=== PATIENT | female | born 1980 | race Native Hawaiian/Other Pacific Islander ===

== ENCOUNTER 2017-02-17 11:35 | Inpatient (IN) | payer BC ==
[2017-02-17] MEDS ORDERED: ceFAZolin 1 GM in Sodium Chloride 0.9% 100 ML IVPB ONE (12:46)
[2017-02-17 12:47] VITALS: BMI 28.0
[2017-02-17] MEDS: Lactated Ringer's 1,000 ML IV SCH ×2 (13:00→14:04)
[2017-02-17] MEDS ORDERED: ceFAZolin IV 2 gm in Dextrose 2 GM/50 ML BAG IVPB ONE (13:36)
[2017-02-17] MEDS ORDERED: Oxytocin 30 UNITS in Sodium Chloride 0.9% 500 ML IV ONE (13:37)
[2017-02-17 14:03] LABS: BASO % 0.2 % (0.0-2.0); EOS % 0.3 % (0.0-4.0); HEMATOCRIT 31.6 % (34.0-47.0); LYMPH % 19.9 % (20.0-40.0); MEAN CELL VOLUME 102.8 fl (81.0-99.0); MEAN CORPUSCULAR HEMOGLOBIN 34.4 pg (27.0-31.0); MEAN CORPUSCULAR HGB CONC 33.5 g/dL (33.0-37.0); MEAN PLATELET VOLUME 9.8 fl (7.2-11.7); MONO # 0.6 K/uL (0.0-0.8); MONO % 11.7 % (0.0-10.0); NEUT # 3.3 K/uL (1.8-7.0); NEUT % 67.9 % (50.0-75.0); NRBC % 0.1 % (0.0-0.0); RED CELL DISTRIBUTION WIDTH 14.3 % (11.5-14.5); WHITE BLOOD COUNT 4.9 K/uL (4.8-10.8)
--- NOTE | 2017-02-17 14:38 | OBHP ---
Datetime: 02/17/2017 12:58 IP Adm Impression: , intrauterine ; No Active Labor IP Admit Plan: Admit to unit; Initiate Section protocol Admit Comment, IP Provider: 36 y/o female at 36.3wks with no significant medical history presen ting today for a scheduled . Pt does not have any complaints at this time, denies any vagina l bleeding, LOF, ctx. admits to +FM. No other complaints otherwise. PMHX: denies PSHX: denies Allergies: denies OB history: 1st , no complications Labs: Hepatitis negative, rubella immune, GBS negative PE Gen: Pleasant, NAD Heart: RRR, S1S2, no murmurs Resp: CTA B/L Abdomen: Gravid uterus, BS+, nontender, nondistended, no guarding Extremities: No cyanosis, edema A/P: 36 y/o at 36.3wk twin gestation for scheduled Admit to Labor and delivery NPO Initiate protocol Manage as ordered Ivy Ayers The patient was seen with resident and I agree with the notes. Informed consent was obtained we di scussed risks benefits and alternatives to surgery and patient agreed to plan of care Pelvic Type - PN: Adequate Extremities - PN: Normal Abdomen - PN: Normal Back - PN: Normal Breast - PN: Normal Lungs - PN: Normal Heart - PN: Normal Thyroid - PN: Normal Neurologic - PN: Normal HEENT - PN: Normal General - PN: Normal FHR - Baseline A Provider: 145 EGA AdmitDate IP: 36.3 Vital Signs Provider: Reviewed IP Chief Complaint: Scheduled Section NICHD Variability Prov Fetus A: Moderate 6-25bpm NICHD Accel Fetus A IP Provider: [id number] FHR Category Provider Fetus A: Category I NICHD Decel Fetus A IP Provider: None Genitourinary Exam: Normal DTRs - PN: Normal
[2017-02-17] MEDS ORDERED: Morphine 1 mg/ml preservative-free Inj(Duramorph) ONE (19:45)
[2017-02-17] MEDS ORDERED: ePHEDrine 50 mg/ml Inj ONE (20:00)
[2017-02-17] MEDS ORDERED: DiphenhydrAMINE 50 mg/ml Inj IVP PRN (21:26)
[2017-02-17] MEDS ORDERED: Oxycodone/Acetaminophen 5/325 mg Tab PO PRN ×2 (23:35)
[2017-02-18] MEDS: Simethicone 80 mg Chewtab PO SCH ×5 (05:01→21:19)
[2017-02-18 07:31] LABS: BASO % 0.1 % (0.0-2.0); EOS % 0.1 % (0.0-4.0); LYMPH # 0.9 K/uL (1.0-4.3); LYMPH % 11.3 % (20.0-40.0); MEAN CELL VOLUME 103.2 fl (81.0-99.0); MEAN CORPUSCULAR HEMOGLOBIN 35.1 pg (27.0-31.0); MEAN PLATELET VOLUME 9.5 fl (7.2-11.7); MONO # 0.8 K/uL (0.0-0.8); MONO % 10.7 % (0.0-10.0); NEUT % 77.8 % (50.0-75.0); RED CELL DISTRIBUTION WIDTH 14.3 % (11.5-14.5); WHITE BLOOD COUNT 7.7 K/uL (4.8-10.8)
--- NOTE | 2017-02-18 09:20 | OBPPN ---
Datetime: 02/18/2017 09:18 PP Pain Prov: Within normal limits PP Nausea Prov: Denies PP Flatus Prov: Yes PP Breasts Prov: Not Done PP Heart Prov: Normal PP Lungs Prov: Normal PP Abdomen/Uterus Prov: Normal PP Lochia Prov: Not Done PP Vulva/Perineum Prov: Not Done PP CVA Tenderness Prov: Normal PP Extremities Prov: Normal PP Impression Prov: Normal progression PP Plan Prov: Continue present management PP Progress Note Prov: Patient doing well reports minimal lochia pain well-controlled tolerating t Vital signs stable afebrile Uterus firm below the umbilicus Incision clean dry and intact Extremities no Homans Postoperative day #1 Encourage ambulation, regular diet, analgesia as needed Vital Signs Provider PP: Reviewed
[2017-02-19] MEDS: Simethicone 80 mg Chewtab PO SCH ×4 (05:29→22:03)
--- NOTE | 2017-02-19 10:06 | OBPPN ---
Datetime: 02/19/2017 10:04 PP Pain Prov: Within normal limits PP Nausea Prov: Denies PP Flatus Prov: Yes PP Breasts Prov: Not Done PP Heart Prov: Normal PP Lungs Prov: Normal PP Abdomen/Uterus Prov: Normal PP Lochia Prov: Not Done PP Vulva/Perineum Prov: Not Done PP CVA Tenderness Prov: Normal PP Extremities Prov: Normal PP C/S Incision Prov: Normal PP Impression Prov: Normal progression PP Plan Prov: Continue present management PP Progress Note Prov: Patient doing well ambulating tolerating diet and passing flatus no complaint s Vital signs stable afebrile Uterus firm below the umbilicus Incision clean dry and intact Extremities no Homans Postoperative day #2 Encouraged ambulation, regular diet, Motrin as needed Vital Signs Provider PP: Reviewed
[2017-02-20] MEDS: Simethicone 80 mg Chewtab PO SCH ×2 (04:05→08:48)
--- NOTE | 2017-02-20 09:19 | OP ---
PROCEDURE DATE: 02/17/2017 PREOPERATIVE DIAGNOSES: Twin gestation, 36 plus weeks, breech vertex presentation, elective primary delivery. POSTOPERATIVE DIAGNOSES: Twin gestation, 36 plus weeks, breech vertex presentation, elective primary delivery. OPERATION PERFORMED: Primary low flap transverse section via Pfannenstiel skin incision. SURGEON: Ian Galarza MD SIGN BUILDER SUPERVISOR: Bobby Wallace MD He was the academic affairs assistant he helped create exposure, obtain hemostasis, deliver the and close the patient. The procedure would not have been possible without his help ANESTHESIA: Spinal. ANESTHESIA ADMINISTERED BY: Dr. Schwartz. ESTIMATED BLOOD LOSS: 800 mL. URINE OUTPUT: Marquez catheter put out approximately 200 mL of clear urine. INTRAVENOUS FLUID INTAKE: Patient received approximately 2 L of D5 LR intraoperatively. OPERATIVE FINDINGS: Baby boy A delivered from vertex presentation, 2590 gm, 5 pounds 11 ounces, Apgars 9 and 9. Baby boy B weighing 2860 gm, 6 pounds 4.8 ounces, Apgars 9 and 9. Normal uterus, tubes, and ovaries were identified. DESCRIPTION OF PROCEDURE: After informed consent was obtained, the patient was taken to the operating room where she was given spinal anesthesia. The patient was then prepped and draped in the normal sterile fashion with a leftward tilt. A Pfannenstiel skin incision was then made with a scalpel and carried down to the underlying layer of fascia. The fascia was nicked in the midline. The fascial incision was then extended laterally with a curved scissors. The superior aspect of the fascial incision was then grasped with Shelbie clamps, elevated up, and the rectus muscles were dissected off using both sharp and blunt dissection. Attention was then turned to the inferior aspect of the fascial incision which in a similar fashion, was grasped with Shelbie clamps, elevated up, and the rectus muscles dissected off using both sharp and blunt dissection. The rectus muscles were then in the midline, the peritoneum identified and entered sharply with the Metzenbaum scissors. The peritoneal incision was then extended superiorly and inferiorly with good visualization of the bladder. The bladder blade was then inserted. The vesicouterine peritoneum was identified, grasped with smooth pickups and entered sharply with the Metzenbaum scissors. The incision was extended laterally, and the bladder flap was created digitally. Bladder blade was then readjusted, and a low transverse incision was then made with the scalpel. Baby A was then delivered from the vertex presentation. The cord was clamped with a [place] clamp and cut. The was handed off to the awaiting pediatricians. Cord blood was obtained, sent to the lab. Attention was then turned to baby B, which was delivered from the vertex presentation. Cord was clamped with Shelbie clamps, clamped and cut, and cord blood was obtained, it was sent to the lab. The placenta was then removed manually. The uterus was exteriorized and cleared off all clots and debris. The uterine incision was repaired with 0-Vicryl in a running locked fashion. A second layer of the same suture was used to obtain excellent hemostasis. Methergine was given, 0.2 IM. The abdomen was then copiously irrigated. The irrigant was removed with a suction device. The uterus was returned to the abdomen. Hemostasis was noted. The gutters were then cleared of all clots and debris. The uterine incision was reexamined, noted to be hemostatic. The peritoneum was then closed with 2-0 Vicryl in a running fashion. The muscles re-approximated with 0 Vicryl in an interrupted fashion. The fascia was closed with 0 Vicryl in a running fashion. The skin was closed with 3-0 on a Anuel needle. All sponge, lap, needle and instrument counts were correct x2, and the patient was taken to the recovery room in awake and stable condition. Ian Galarza MD [facility]
--- NOTE | 2017-02-20 10:52 | OBPPN ---
Datetime: 02/20/2017 10:49 PP Pain Prov: Within normal limits PP Nausea Prov: Denies PP Flatus Prov: Yes PP Breasts Prov: Normal PP Heart Prov: Normal PP Lungs Prov: Normal PP Abdomen/Uterus Prov: Normal PP Lochia Prov: Normal PP Vulva/Perineum Prov: Normal PP CVA Tenderness Prov: Normal PP Extremities Prov: Normal PP Progress Prov: Normal PP Comments Phys Exam Prov: Abd- Soft, Nt, Bs - present UT- Firm, NT Incision: Clean and dry, no abnormal discharge. PP Impression Prov: Normal progression PP Plan Prov: Discharge PP Progress Note Prov: S/P Section, POD #3 Clinically Stable. Plan: D/C Home F/U with Dr Galarza Pelvic Rest for 6 weeks.
--- NOTE | 2017-02-20 10:54 | OBDCSUM ---
Datetime: 02/20/2017 10:52 Discharged to, Provider: Home Follow up at, Provider: Dr Galarza Disch Instr Activity: Normal activity Disch Instr Diet: Regular Discharge Instructions, Provider: Routine instructions given Discharge Diagnosis, Provider: Term Delivered Discharge Time: 02/20/2017 10:52 Follow up in weeks, Provider: 2 wks Disch Referrals: None Contraception discussed, Prov: Yes Discharge Comment, Provider: S/p Twin delivery by Delivery. Clinically Stable. Discharge Diagnosis Prov Other: S/p Twin delivery by Delivery. Clinically Stable.
[2017-02-20 21:20] VITALS: BP 99/61; PULSE 65; RESP 17; TEMP 99.8; O2SAT 96
== END 2017-02-20 15:10 | disposition home or self-care (01) | DRG 765 ==
LOC: H.L&D 12:49 → H.OB/GYN 02-18 00:30
PROVIDERS: ADMIT Obstetrics & Gynecology Gynecology; ATTEND Obstetrics & Gynecology Gynecology
PROC: 10D00Z1 Extraction of Products of Conception, Low, Open Approach (ICD-10-PCS; principal; 2017-02-17)
PROC: 4A1HXCZ Monitoring of Products of Conception, Cardiac Rate, External Approach (ICD-10-PCS; 2017-02-17)
DX: O60.14X0 Preterm labor third trimester with preterm delivery third trimester, not applicable or unspecified (principal); O30.003 Twin pregnancy, unspecified number of placenta and unspecified number of amniotic sacs, third trimester; O32.1XX0 Maternal care for breech presentation, not applicable or unspecified; Z37.2 Twins, both liveborn; Z3A.36 36 weeks gestation of pregnancy; O09.523 Supervision of elderly multigravida, third trimester